=== PATIENT | female | born 1995 | race Caucasian/White ===

== ENCOUNTER 2019-04-16 14:22 | Emergency (ER) | payer OTHER ==
[~2019-04-16 14:22] MED LIST: ISOVUE-370 76%-LOCM 1 ML ONE
[2019-04-16 14:44] LABS: #Eosinphils 0.1 thou/uL (0.0-0.7); #Lymphocytes 2.2 thou/uL (1.20-3.40); #Monocytes 0.5 thou/uL (0.11-0.59); #Neutrophils 5.2 thou/uL (1.40-6.50); %Basophils 0.5 % (0.0-1.0); %Eosinophils 1.6 % (0.0-10.0); %Lymphocytes 27.4 % (21.0-51.0); %Neutrophils 64.4 % (42.0-75.0); Hemoglobin 13.5 g/dL (12.0-16.0); Mean Corpuscular HGB CONC 34.2 g/dL (32.0-36.0); Mean Corpuscular Hemoglobin 29.7 pg (27.0-31.0); Mean Corpuscular Volume 86.9 fL (78.0-98.0); Mean Platelet Volume 9.8 fL (7.4-10.4); Platelet Count 190 thou/uL (130-400); RBC Distribution Width 11.5 % (11.5-14.5); Red Blood Cell (RBC) Count 4.54 mill/uL (4.20-5.40); White Blood Cell (WBC) Count 8.1 thou/uL (4.8-10.8)
[2019-04-16] MEDS ORDERED: Adacel (T-DAP) 0.5 ML SYRINGE ONE (14:57)
--- NOTE | 2019-04-16 15:05 | CT ---
CT BRAIN WITHOUT CONTRAST: Date: 04/16/19 HISTORY: Level II trauma. FINDINGS: No evidence of acute infarct, hemorrhage, midline shift, or abnormal extra-axial fluid collections ar e seen. The ventricular size is normal and the basilar cisterns are patent. The bony calvarium is int act. The visualized paranasal sinuses and mastoid air cells are well aerated. IMPRESSION: No CT evidence of acute intracranial process. POS: [facility]
[2019-04-16 15:08] LABS: ALT (SGPT) 27 U/L (8-55); AST (SGOT) 31 U/L (5-34); Albumin 4.2 g/dL (3.5-5.0); Alkaline Phosphatase 90 U/L (40-110); Anion Gap 13 mmol/L (10-20); BUN (Urea Nitrogen) 10 mg/dL (7.0-18.7); Bilirubin, Total 0.4 mg/dL (0.2-1.2); Calc. Creatinine Clearance 0 mL/min (70-130); Calcium 9.2 mg/dL (7.8-10.44); Carbon Dioxide 22 mmol/L (22-29); Chloride 108 mmol/L (98-107); Estimated GFR-MDRD Greater than 90; Globulin 3.1 g/dL (2.4-3.5); Glucose 87 mg/dL (70-105); Potassium 3.9 mmol/L (3.5-5.1); Protein, Total 7.3 g/dL (6.0-8.3); Sodium 139 mmol/L (136-145)
--- NOTE | 2019-04-16 15:20 | CT ---
CT CERVICAL SPINE WITHOUT CONTRAST: Date: 04/16/19 HISTORY: Level II trauma, neck pain. FINDINGS/IMPRESSION: No fracture, subluxation, or facet malalignment is identified. Discussed over the telephone with ER physician, Dr. Gutiérrez, at 1457 hours. CODE CR. POS: [facility]
--- NOTE | 2019-04-16 15:34 | CT ---
CT CHEST WITH IV CONTRAST CT ABDOMEN WITH IV CONTRAST CT PELVIS WITH IV CONTRAST CORONAL AND SAGITTAL REFORMATIONS OF THE THORACOLUMBAR SPINE: Date: 04/18/19 HISTORY: Level II trauma, chest pain, abdominal, pain and back pain. FINDINGS: No mediastinal hematoma or intimal flip in the aorta is seen to suggest transection. No pleural or pe ricardial effusions are seen. No pneumothoraces or pulmonary contusions are identified. There is a 3. 0 mm peripheral nodule in the left upper lobe. No free air or free fluid is seen in the abdomen or pelvis. The liver, spleen, pancreas, adrenal glan ds, and kidneys are intact. Uterus and ovaries are present. Gallbladder and urinary bladder also appe ar intact. No fracture or subluxation seen in the thoracolumbar spine. No other acute osseous abnorma lities are identified. A normal appearing appendix is seen. IMPRESSION: No CT evidence of acute intrathoracic or solid organ injury. Discussed over the telephone with ER physician, Dr. Rory Gutiérrez, at 1511 hours. CODE CR. POS: [facility]
[2019-04-16] MEDS ORDERED: Ketorolac Tromethamine 30 MG/ML VIAL ONE (15:42)
[2019-04-16] MEDS ORDERED: Acetaminophen 500 MG TAB ONE (15:42)
[2019-04-16 16:16] LABS: Bacteria/HPF None Seen HPF (None Seen); Bilirubin Negative (Negative); Blood, Urine Negative (Negative); Clarity Clear (Clear); Glucose, Urine (Dipstick) Normal (Negative); Leukocyte 25 Leu/uL (Negative); Nitrite Negative (Negative); Pregnancy Test - Urine (BHCG) Negative (Negative); Protein, Urine (Dipstick) Negative (Neg-Trace); RBC/HPF 0-3 HPF (0-3); Squamous Epithelial 0-3 HPF (0-3); Urobilinogen Normal mg/dL (Less than 2); WBC/HPF 0-3 HPF (0-3)
[2019-04-16 16:17] LABS: Pregu Control Background? CLEAR/WHITE (CLR/WHITE); Pregu Control Bar Appear? YES (CONTROL BAR); Specific Gravity 1.052 (1.002-1.036)
--- NOTE | 2019-04-16 16:18 | RAD ---
RIGHT KNEE FOUR VIEWS: History: Right knee pain, level II trauma. FINDINGS/IMPRESSION: No fracture or dislocation is seen. No joint effusion is identified. POS: [facility]
--- NOTE | 2019-04-16 17:03 | RAD ---
Exam: Chest one view HISTORY:Pain Comparison: None FINDINGS: Cardiac silhouette: Normal Aorta: Unremarkable Pulmonary vessels: Normal Costophrenic angles: Clear LUNGS: No masses or consolidation. Pneumothorax: None Osseous abnormalities: None IMPRESSION: No acute cardiopulmonary process.
== END 2019-04-16 17:14 | disposition home or self-care (01) ==
LOC: ERS 14:22
DX: S80.01XA Contusion of right knee, initial encounter (principal); S60.512A Abrasion of left hand, initial encounter; S60.511A Abrasion of right hand, initial encounter; R10.9 Unspecified abdominal pain; Z23 Encounter for immunization; V43.52XA Car driver injured in collision with other type car in traffic accident, initial encounter
CPT/HCPCS: 70450; 71045; 71260; 72125; 74177; 80053; 81003; 81015; 81025; 85025; 90471; 90715; 96361; 96374; J1885; Q9966